=== PATIENT | female | born 1980 | race Caucasian/White ===

== ENCOUNTER → 2016-06-09 | Outpatient (CLI) | payer BC | LOC: SL 14:44 | DX: G47.33 Obstructive sleep apnea (adult) (pediatric) (principal); R07.89 Other chest pain; R00.1 Bradycardia, unspecified; E03.9 Hypothyroidism, unspecified; R06.00 Dyspnea, unspecified; Z82.49 Family history of ischemic heart disease and other diseases of the circulatory system ==